=== PATIENT | female | born 1945 | race Caucasian/White ===

== ENCOUNTER 2016-07-10 16:30 | Inpatient (IN) | payer MEDICARE, BC ==
[~2016-07-10] VITALS: Ht 152.4 cm; Wt 54.5 kg
--- NOTE | ~2016-07-10 | OR ---
PATIENT'S NAME: THADDEUS RAE [facility] AGE: 71 Y [address] ROOM: [address] [place] [address] LOCATION: GPCU ADMIT DATE: 07/10/2016 OR/Procedure Report DISCHARGE DATE: FAMILY PHYSICIAN: Nieves Yeh PA-C ATTENDING PHYSICIAN: CHOLO PETERS SURGEON: Otf Flaherty DO SPECIAL INVESTIGATOR: DATE OF PROCEDURE: 07/12/2016 PREOPERATIVE DIAGNOSIS: Loculated right pleural effusion. POSTOPERATIVE DIAGNOSIS: Loculated right pleural effusion plus empyema. PROCEDURE: Right thoracoscopy with drainage of loculated effusion. BRIEF HISTORY: Ms. Rae is a 71-year-old white female with the above- noted diagnosis. She has been brought to the operative suite today, sterilely prepped and draped in the usual fashion in the lateral decubitus position for right thoracoscopy. She has been intubated with a dual-lumen endotracheal tube. An incision was created approximately 3 fingerbreadths below the scapular tip in between the mid and anterior axillary lines. We entered the pleural space under direct vision. Finger sweep yielded evidence of gelatinous type adhesions and these were freed with a finger sweep. Suction was introduced, approximately 350 mL of bloody pleural fluid was evacuated. Thoracoscope was inserted. Dense gelatinous changes with marked inflammatory changes were noted. We were able to place 2 accessory incisions posterolaterally and anterolaterally and through this freed the right lower lobe which was densely involved. Two spots of purulence were encountered. Cultures had been taken. Decortication was performed of the lower lobe and the pleural costophrenic angle on the right. 6 L of normal saline was used to irrigate the pleural space and chest tube was placed to original port site. The remaining 2 incisions were closed in layered fashion using 0 Vicryl, 2-0 Vicryl, and 4-0 Monocryl. Chest tube was secured to the skin with 0 Vicryl and placed to suction. The patient was extubated and transferred to the recovery room in stable condition. OTF FLAHERTY DO MCB/modl /[id number] d: 07/14/16 1821 t: 07/15/16 1141, OPERATIVE SUMMARY
--- NOTE | ~2016-07-10 | CON ---
PATIENT'S NAME: THADDEUS VELAZQUEZ [facility] AGE: 71 Y [address] ROOM: [id number] [place], [place] [address] LOCATION: GPCU ADMIT DATE: 07/10/2016 Consultation DISCHARGE DATE: FAMILY PHYSICIAN: Nieves Yeh PA-C ATTENDING PHYSICIAN: CHOLO PETERS DATE OF CONSULTATION: 07/20/2016 REFERRING PHYSICIAN: Otf Euceda DO REASON FOR CONSULTATION: TIMOTHY. HISTORY OF PRESENT ILLNESS: A 71-year-old female, transferred from an outside hospital with pneumonia and parapneumonic effusion, requiring thoracoscopic evaluation and management, now developed TIMOTHY. Nephrology consultation has been called for the same. Her renal function was at baseline on admission until July 17, 2016, her creatinine raised from 0.5 to 0.7 during this period. However, since July 18, 2016, her creatinine went up and peaked at 1.5 on July 19, 2016. Slowly it has started to dip down, today the creatinine is 1.3. She denied any urinary symptoms including polyuria or nocturia, however, did mention about some dysuric symptoms especially at the time of admission. The UA done on the time of admission was showing some signs of infection including packed WBC and moderate bacteria with positive LE; however, the patient was treated with antibiotic with vanc and meropenem at that time, but currently not on any antimicrobial agent. She denied any shortness of breath or chest pain, at this point feeling better. No fevers or chills or rigors. No nausea, vomiting, or diarrhea. No abdominal symptoms. She claims that she is eating and drinking okay. However, on my evaluation, she appears to be slightly on the dry side. Does not have any JVD, and the mucous membrane was dry and the lungs sounds okay except occasional fine crackles at the right lung base and coarse breath sounds. Her mental status was apparently altered at the time of admission and which was thought to be due to medication induced; however, it has cleared up since then and now currently alert and oriented x3 and can communicate well with the examiner. REVIEW OF SYSTEMS: GENERAL: No fever. No chills or rigor. HEENT: No sore throat. No sinus congestion. CVS: No chest pain. No exertional shortness of breath. No leg swelling. RESPIRATORY: No shortness of breath. No cough. No wheezing. GENITOURINARY: Complains of pain with urination during the time of admission, but does not have any dysuric symptoms at this point. No increased urinary frequency or nocturia. GASTROINTESTINAL: No abdominal pain. No abdominal distention. No nausea or vomiting. NEUROLOGIC: No weakness. No seizures. SKIN: No rash. No itching. ALLERGIES: No seasonal allergy. No hayfever. ENDOCRINE: No heat intolerance. No cold intolerance. PSYCHIATRIC: No sadness. No crying spells. No history of panic attack. PATIENT'S NAME: THADDEUS VELAZQUEZ [facility] AGE: 71 Y [address] ROOM: [place] [address] LOCATION: GPCU ADMIT DATE: 07/10/2016 Consultation DISCHARGE DATE: FAMILY PHYSICIAN: Nieves Yeh PA-C ATTENDING PHYSICIAN: CHOLO PETERS PAST MEDICAL HISTORY: 1. Type 2 diabetes mellitus. 2. Fibromyalgia. 3. Peripheral neuropathy. 4. History of angina and is a patient of Dr. Combs. 5. Atrial tachycardia. PAST SURGICAL HISTORY: No significant surgical history in the past, other than thoracoscopy surgery in the recent time. ALLERGIES: ALLERGY TO LATEX WELL ERYTHROMYCIN. SOCIAL HISTORY: Never a smoker. No alcohol or drug use in the past. PAST FAMILY HISTORY: Significant for COPD/emphysema and coronary artery disease. No history of kidney disease or dialysis in the family. CURRENT MEDICATIONS: 1. Albuterol inhaler b.i.d. 2. Sodium chloride infusion 1 L bolus. 3. Cymbalta 60 mg capsule p.o. daily. 4. Feosol 325 mg p.o. daily. 5. Fish oil 1 g p.o. daily. 6. Florastor 250 mg p.o. b.i.d. 7. Inderal 20 mg tablet p.o. b.i.d. 8. Norvasc 10 mg per tablet p.o. daily. 9. Pepcid 20 mg p.o. daily. 10. Protonix 40 mg tablet p.o. daily. 11. Vitamin D 2000 units p.o. daily. 12. Vitamin E 400 units capsule p.o. daily. 13. Zocor 40 mg p.o. q.h.s. 14. Heparin 5000 units subcut b.i.d. 15. NovoLog 100 units at h.s. 16. Lidocaine 1% p.r.n. for IV start. 17. Albuterol 2.5 mg inhalation p.r.n. 18. Zofran 4 mg IV q.6 hours p.r.n. for vomiting. 19. Flonase 50 mcg 2 sprays inhalation daily p.r.n. 20. Robitussin 200 mg p.o. q.6 hours p.r.n. 21. Sudafed 30 mg p.o. q.4-6 hours p.r.n. LABORATORY STUDIES: WBC 8.8, hemoglobin 9.1, hematocrit 29.5, platelets 557. Chemistry; sodium 145, potassium 4.3, chloride 110, bicarbonate 24, BUN 10, creatinine 1.3, calcium 8.7, glucose 126, albumin 1.7 done on July 17, 2016. UA done on July 11, 2016, shows a pH of 6, specific gravity 1.015, positive LE, negative nitrite, 1+ protein, positive ketones, packed with wbc's, 2-5 rbc's, 5-10 epithelial cells, few bacteria. PATIENT'S NAME: THADDEUS VELAZQUEZ [facility] AGE: 71 Y [address] ROOM: [address] [address] LOCATION: GPCU ADMIT DATE: 07/10/2016 Consultation DISCHARGE DATE: FAMILY PHYSICIAN: Nieves Yeh PA-C ATTENDING PHYSICIAN: CHOLO PETERS PHYSICAL EXAMINATION: VITAL SIGNS: Blood pressure 120s/60s, respiratory rate 16, pulse 68, saturation 98% on room air. GENERAL: Not in apparent distress. HEAD: Moist mucous membranes. Bilateral PERRLA, EOMI. NECK: No JVD, thyromegaly or lymphadenopathy. CVS: S1 and S2 normal, regular rate and rhythm. No murmur, rub, gallop. CHEST: Bilateral air entry equal, especially anteriorly, decreased breath sounds on the right basilar area with some fine crackles occasionally. ABDOMEN: Soft, nontender, nondistended. Bowel sounds present. EXTREMITIES: No cyanosis, clubbing, jaundice. No dependent edema. MUSCULOSKELETAL: No limitation of range of motion. SKIN: No pallor, cyanosis, icterus. ANALYST COMPETITIVE INTELLIGENCE: Alert and oriented x3. No gross findings. ASSESSMENT/PLAN: 1. Acute kidney injury: Nonoliguric acute kidney injury stage 2, presumable etiology is acute tubular necrosis from sepsis versus medication induced. We will send urinalysis and urine lytes including sodium, creatinine, and osmolality. We will gently volume expand the patient with 1 L bolus as ordered by the primary care doctor. We will continue with a maintenance fluid of 100 mL/hour for another 20 hours and a strict intake and output. Avoid nephrotoxins. Maintain hemodynamic stability including MAP more than 65. We agree with maintaining the blood pressure in the 130 to 140 range. Renal ultrasound today. 2. Urinary tract infection. Possibly during the hospital admission, now currently does not have any dysuric symptoms, but not on any antibiotics either. We will repeat the UA today, and we will decide about possible need for further antibiotic therapy. 3. Pneumonia with parapneumonic effusions, status post thoracoscopic evaluation. We will defer that part to the primary team. 4. Acute hypoxic respiratory failure. Resolved, now off oxygen. 5. Acute encephalopathy. During the hospital admission, probably medication induced, resolved now. If the patient has developed ATN, it will follow its natural course of progression, we will see if the creatinine will stabilize for a day or two before finally seeing any improvement, it may take a few days to weeks. However, the patient does not need to be in the hospital during this period if she seems to be dischargeable from other perspective by the primary care team. We will slowly volume expand the patient today as mentioned above, and we will see the renal function tomorrow. If creatinine is a little stable or improving than today, the patient can go home tomorrow with a followup in my clinic in 2 weeks. Thank you for allowing me to participate in this patient's care. We will closely monitor the patient's progress along with you. PAYTON RUSHING MD /modl /[id number] d: 07/20/162021 t: 07/21/16 1354, CONSULTATION REPORT
--- NOTE | ~2016-07-10 | CON ---
PATIENT'S NAME: THADDEUS VELAZQUEZ [facility] AGE: 71 Y [address] ROOM: [place] [address] LOCATION: GPCU ADMIT DATE: 07/10/2016 Consultation DISCHARGE DATE: 07/23/2016 FAMILY PHYSICIAN: Nieves Yeh PA-C ATTENDING PHYSICIAN: Jerry Wesley DATE OF CONSULTATION: 07/11/2016 REFERRING PHYSICIAN: Otf Flaherty DO REQUESTING PHYSICIAN: Dr. Eugene. REASON FOR CONSULTATION: Right loculated pleural effusion. HISTORY OF PRESENT ILLNESS: The patient is a 71-year-old white female, who was transferred here after she presented to her local hospital with complaints of shortness of breath, generalized malaise, that also included diarrhea. This had been going on for approximately one week, and therefore, the family presented to the [facility] where the patient was diagnosed with a right- sided pneumonia with a large loculated pleural effusion. The patient was transferred here and was admitted to [facility] by [facility]. She was placed on broad-spectrum antibiotics. The hospitalists proceeded with a right thoracentesis, yielding 460 mL of pleural fluid, which has been sent for cytology, is currently pending. The patient has been seen by Dr. Eugene, circuit walker. Dr. Flaherty has been asked to see the patient in consultation to proceed to the operative suite for a thoracoscopy and drainage of the loculated effusion. PAST MEDICAL HISTORY: Illnesses: Fibromyalgia, peripheral neuropathy, angina, hypertension, irritable bowel syndrome, asthma, and dyslipidemia. Surgeries/procedures: Total abdominal hysterectomy with bilateral salpingo- oophorectomy, cholecystectomy, bilateral cataract surgeries, sinus surgery x2, cardiac catheterization x2. SOCIAL HISTORY: The patient is . She and her reside in [place], [place]. She is retired. She has grown children. She is a nonsmoker and a non-alcohol consumer. FAMILY HISTORY: Her father's history is significant for having heart disease as well as PATIENT'S NAME: THADDEUS VELAZQUEZ [facility] AGE: 71 Y [address] ROOM: [place] [address] LOCATION: GPCU ADMIT DATE: 07/10/2016 Consultation DISCHARGE DATE: 07/23/2016 FAMILY PHYSICIAN: Nieves Yeh PA-C ATTENDING PHYSICIAN: Jerry Wesley emphysema from smoking. Her mother had history with coronary artery disease and has had bypass surgery, previous strokes and was diabetic. Her sister also had some heart problems. MEDICATIONS: Please see medication administration record. REVIEW OF SYSTEMS: A 10-point review of systems was negative except for the pertinent positives per HPI. PHYSICAL EXAMINATION: VITAL SIGNS: Blood pressure 137/61, pulse 93, respirations 26, temp 98.9, O2 saturations 95% on 1 L. GENERAL: She is a small, frail lady, who appears her stated age. She is very pleasant. HEENT: Normocephalic, atraumatic. EOM is intact. Conjunctivae clear. LUNGS: Clear to diminished throughout. CARDIOVASCULAR: Tachy but regular. ABDOMEN: Soft, nontender by 4 quadrants. Positive bowel sounds throughout. EXTREMITIES: No varicosities or edema. NEUROLOGIC: Alert and oriented. LABORATORY DATA: Lab and test results are as per HPI. IMPRESSION: 1. Sepsis secondary to pneumonia. Right pleural effusion. RECOMMENDATION AND PLAN: Dr. Flaherty spoke to the patient and her family with regard to a right thoracotomy with drainage of effusion. Risks and benefits of the procedure were discussed. Questions were asked and answered by the family, and this was to their satisfaction. They did agree to proceed with surgery. Plans are for surgery on July 12, 2016. We would like to thank Dr. Eugene for allowing us to participate in the care of this very pleasant woman. BIANKA GONSALES APRN FOR OTF FLAHERTY DO PATIENT'S NAME: THADDEUS VELAZQUEZ [facility] AGE: 71 Y [address] ROOM: [place] [address] LOCATION: GPCU ADMIT DATE: 07/10/2016 Consultation DISCHARGE DATE: 07/23/2016 FAMILY PHYSICIAN: Nieves Yeh PA-C ATTENDING PHYSICIAN: Jerry Wesley DLQ/modl /[id number] d: 07/28/163 t: 07/31/16 1032, CONSULTATION REPORT
--- NOTE | ~2016-07-10 | CON ---
PATIENT'S NAME: THADDEUS VELAZQUEZ [facility] AGE: 71 Y [address] ROOM: [place] [address] LOCATION: GPCU ADMIT DATE: 07/10/2016 Consultation DISCHARGE DATE: 07/23/2016 FAMILY PHYSICIAN: Nieves Yeh PA-C ATTENDING PHYSICIAN: Jerry Wesley DATE OF CONSULTATION: 07/21/2016 REFERRING PHYSICIAN: Otf Euceda DO INDICATION: Pleural effusion. HISTORY OF PRESENT ILLNESS: This is a 71-year-old female transferred for pleural effusion with possible loculation noted on CT along with a 1.9 cm hypodensity and atelectasis in the right middle and lower lobes. She has a history of fibromyalgia, diabetes, childhood asthma, and allergies, who was well up until 2 weeks ago. At that time, she developed cough, fever, diarrhea, and shortness of breath. She was evaluated initially and treated with Rocephin and azithromycin. Her flu swab was reportedly negative at that time. She continued to get short of breath with chest tightness and left lateral chest pain with inspiration. She had developed a dry cough as well as wheezing. At that point, her diarrhea had resolved. She also reports excessive daytime sleepiness and snoring. She denies any hemoptysis, edema, or syncope. She has no history of tobacco use. She denies frequent infections, and does not use inhalers or oxygen at home. She was evaluated over 5 years ago with sleep study and was told to come for "another one," but never did. She is status post a right-sided diagnostic thoracentesis with four 460 mL removed and sent for cytology. Overall, she feels a little better this a.m. with less shortness of breath. PAST MEDICAL HISTORY: Includes type 2 diabetes, fibromyalgia, peripheral neuropathy, and possible history of atrial tachycardia. ALLERGIES: SEE MAR. MEDICATIONS: See MAR. FAMILY HISTORY: Family history is significant for emphysema and coronary artery disease in her father. SOCIAL HISTORY: PATIENT'S NAME: THADDEUS VELAZQUEZ [facility] AGE: 71 Y [address] ROOM: [place] [address] LOCATION: GPCU ADMIT DATE: 07/10/2016 Consultation DISCHARGE DATE: 07/23/2016 FAMILY PHYSICIAN: Nieves Yeh PA-C ATTENDING PHYSICIAN: Jerry Wesley She denies tobacco or alcohol use. REVIEW OF SYSTEMS: 12-point review of systems is negative except for what is noted in the HPI. PHYSICAL EXAMINATION: VITAL SIGNS: Blood pressure 116/80, pulse 110, respirations 24, temperature 99.1, and she is 93% on 2 L nasal cannula. GENERAL: This is a 71-year-old female who is well developed, well nourished, alert, oriented x3, appears in no acute distress at the time of exam. HEENT: Head: Normocephalic and atraumatic. Eyes: Clear. NECK: Supple. No adenopathy. No carotid bruits or JVD. LUNGS: Right lung base with dullness on percussion and decreased breath sounds. HEART: Regular rate and rhythm without murmur, gallop, or rub. ABDOMEN: Soft, nontender, nondistended. Bowel sounds x4. EXTREMITIES: No cyanosis, clubbing, or edema. DIAGNOSTIC DATA: Includes sodium 138, potassium 1.3, BUN 7, creatinine 0.5. ProBNP 427. Total protein 6.7. LDH 186. WBC 12.5, hemoglobin 8.1, hematocrit 25.6, and platelets 536. Pleural fluid study showed a glucose of 135, total protein 4.9, and LDH 187. Bedside ultrasound performed showed a right pleural effusion which was multiloculated and with trapped lung. ASSESSMENT: 1. Right complicated pleural effusion with trapped lung. 2. Acute respiratory failure due to right complicated pleural effusion with trapped lung. 3. Sepsis. 4. Community-acquired pneumonia, on antibiotics. PLAN: We will consult Dr. Euceda for evaluation for VATS. Otherwise, continue with antibiotics and wean oxygen as able. We will follow up on the floor cultures as well. Further recommendations will be made pending the course of her stay. Thank you for the consult and opportunity to participate in patient's care. FRANKY PERSAUD APRN FOR MELINA OLIVERA MD MR/modl PATIENT'S NAME: THADDEUS VELAZQUEZ [facility] AGE: 71 Y [address] ROOM: [place] [address] LOCATION: [facility] ADMIT DATE: 07/10/2016 Consultation DISCHARGE DATE: 07/23/2016 FAMILY PHYSICIAN: Nieves Yeh PA-C ATTENDING PHYSICIAN: Jerry Wesley /[id number] d: 07/31/16 2147 t: 08/02/16 1143, CONSULTATION REPORT
--- NOTE | ~2016-07-10 | HP ---
PATIENT'S NAME: THADDEUS VELAZQUEZ [facility] AGE: 71 Y [address] ROOM: [place] [address] LOCATION: GPCU ADMIT DATE: 07/10/2016 History & Physical DISCHARGE DATE: FAMILY PHYSICIAN: PHYSICIAN, UNKNOWN ATTENDING PHYSICIAN: CHOLO PETERS DATE OF SERVICE: CHIEF COMPLAINT: Shortness of breath. HISTORY OF PRESENT ILLNESS: A 71-year-old lady with the past medical history of fibromyalgia and type 2 diabetes, was doing okay until 2 weeks ago when she started having diarrhea, muscle aches, pains, cough and some shortness of breath; which progressed over the period of 1 week. She obtained medical attention at that point and she was given 1 dose of Rocephin intramuscularly and was prescribed azithromycin course. Her condition got worse after this intervention in terms of shortness of breath and generalized weakness. Today, she presented to the [facility] where she was evaluated with some lab work showing leukocytosis of 16 and a CAT scan showing right-sided pneumonia as well as pleural effusion which was moderate to large in size. She was transferred here for further medical care. On my encounter, she is saying that she is somewhat short of breath, having cough with minimal sputum production. She did endorse having fever and chills during the day. She stated that her diarrhea has resolved since then. On further inquiry of systems, she said she does not have any headache, any trouble with the eyes, any trouble swallowing, but did endorse having some chest pressure on and off going on for couple of weeks now. She denied having abdominal pain, any abdominal distention, diarrhea, constipation or any leg swelling. REVIEW OF SYSTEMS: All other systems reviewed and were negative except what is mentioned in the HPI. PAST MEDICAL HISTORY: 1. Type 2 diabetes. 2. Fibromyalgia. 3. Peripheral neuropathy. 4. Of note, she does have history of angina and she is a patient of Dr. Alatorre 5. ? H/O of atrial tachycardia ALLERGIES: THE PATIENT IS ALLERGIC TO LATEX WELL ERYTHROMYCIN. SOCIAL HISTORY: PATIENT'S NAME: THADDEUS VELAZQUEZ [facility] AGE: 71 Y [address] ROOM: [place] [address] LOCATION: GPCU ADMIT DATE: 07/10/2016 History & Physical DISCHARGE DATE: FAMILY PHYSICIAN: PHYSICIAN, UNKNOWN ATTENDING PHYSICIAN: CHOLO PETERS Never a smoker. No alcohol or drug abuse. FAMILY HISTORY: Family history significant for emphysema and coronary artery disease in dad. HOME MEDICATION: Include: 1. Duloxetine 60 mg p.o. every day. 2. Flonase 2 sprays every day. 3. Gabapentin 800 mg p.o. 3 times daily. 4. Lisinopril 5 mg p.o. every day. 5. Metformin 500 mg p.o. every day. 6. Nitroglycerin 0.4 mg sublingual q.5h p.r.n. for pain. 7. Tylenol 1000 mg p.o. every 6 hours p.r.n. for pain. 8. Aspirin 81 mg p.o. every day. 9. Soma tablet 350 mg p.o. every night at bedtime. 10. Cholecalciferol 2000 units p.o. every day. 11. Clonazepam 2 mg p.o. every night at bedtime. 12. Omeprazole 40 mg p.o. every night at bedtime. 13. Propranolol 20 mg p.o. twice daily. 14. Pseudoephedrine 30 mg p.o. every 4 hours p.r.n. 15. Simvastatin 40 mg p.o. every night at bedtime. 16. Vitamin E capsule 400 units p.o. every day. PHYSICAL EXAMINATION: VITAL SIGNS: Blood pressure on arrival to the hospital was 158/78, heart rate of 120, afebrile, saturating 98% on 2 L of oxygen. GENERAL: In no acute distress. Alert, oriented x3. HEENT: Head: Atraumatic, normocephalic. Eyes: Nonicteric. No pallor. Oropharynx: Dry mucous membranes. NECK: No JVD or thyromegaly noted. CARDIOVASCULAR: Normal S1, S2. Tachycardic. No murmur or gallops or rubs. LUNGS: Right-sided decreased breath sound with no expiratory wheezes noted, left-sided clear to auscultation. ABDOMEN: Soft, nontender, nondistended. Bowel sounds are present. EXTREMITIES: No clubbing, cyanosis, or edema. MUSCULOSKELETAL: No tenderness or joint swelling noted. PSYCH: Normal affect, mood and speech. NEURO: Cranial nerves 2 through 12 intact. No motor or sensory deficits noted. SKIN: No bruises or rash noted. LABORATORY DATA: Lab work from outside facility on 07/10/2016 showed a leukocytosis of 16, hemoglobin of 10, platelet count of 800. Sodium 142, potassium 3.5, chloride PATIENT'S NAME: THADDEUS VELAZQUEZ [facility] AGE: 71 Y [address] ROOM: [place] [address] LOCATION: GPCU ADMIT DATE: 07/10/2016 History & Physical DISCHARGE DATE: FAMILY PHYSICIAN: PHYSICIAN, UNKNOWN ATTENDING PHYSICIAN: CHOLO PETERS 99, bicarb 21, BUN 11, creatinine of 0.5, calcium 9.2. Hepatic liver panel was unremarkable. Troponin one set was negative. EKG done over there showed sinus tachycardia without any acute ST-T wave changes. A CAT scan report was reviewed from the outside facility showed right-sided pleural effusion with possible consolidation underneath it. Of note, there was a 1.9 cm round mass which could be a possible loculation, but needs to be evaluated further. At the outside facility, 2 sets of blood cultures were obtained. ASSESSMENT AND PLAN: 1. Community-acquired pneumonia. 2. Right-sided pleural effusion. 3. Type 2 diabetes. 4. Sepsis secondary to pneumonia. 5. Acute cystitis. 6. Anemia, normocytic PLAN: On admission to the hospital, ultrasonography of the chest was done, which did show large right-sided pleural effusion with loculation as well. Diagnostic thoracentesis was performed with aspiration of the yellow turbid fluid. About 460 mL of fluid were aspirated. Post procedure lung sliding ons sonography was noted and no complications were apparent on the chest x-ray. We are going to start intravenous fluid resuscitation as well as broad-spectrum antibiotics. We are going to obtain serial labs including lactic acid level as well as procalcitonin for a possible deescalation. We will monitor pleural fluid cytology as well as analysis to make further decision. We will request a pulmonary consult in the morning to help us with this management( chest tube vs repeat thoracentesis ). We will put her on sliding scale insulin for type 2 diabetes. SCDs to be started in the morning and can be escalated further chemical DVT prophylaxis. Code status was discussed with the patient. The patient is full code. Her anemia is new and needs to be worked up once more stable. From outside hospital and labs repeated in our facility is more consistent with hemodilution. MD CAROLYN IZAGUIRRE/collin /[id number] D: [id number] T: [id number] HISTORY & PHYSICAL
--- NOTE | ~2016-07-10 | CON ---
PATIENT'S NAME: THADDEUS RAE [facility] AGE: 71 Y [address] ROOM: [id number] [place] [id number] LOCATION: GPCU ADMIT DATE: 07/10/2016 Consultation DISCHARGE DATE: FAMILY PHYSICIAN: Nieves Yeh PA-C ATTENDING PHYSICIAN: CHOLO PETERS DATE OF CONSULTATION: 07/19/2016 REFERRING PHYSICIAN: Otf Euceda DO REASON FOR CONSULTATION: Pneumonia with complicated parapneumonic effusion, question duration of antibiotics. HISTORY OF PRESENT ILLNESS: Ms. Rae is a 71-year-old female who has a history of type 2 diabetes. A couple of weeks prior to admission, she started to have cough, shortness of breath, muscle aches, and some loose stools. This apparently progressed. She was given IM Rocephin and given azithromycin, but she worsened. She presented to the hospital in [facility], and a chest x-ray and CT showed right-sided pneumonia and a complicated effusion. White count was 16,000. She was transferred up here, evaluated, and underwent a thoracoscopic evacuation of this pleural effusion. There were a couple of areas where there was a little bit of purulence found. She has been treated with broad-spectrum antibiotics. She received 10 days of therapy of this. She was on vancomycin and Zosyn here. She had her chest tube out on Sunday. She has a little bit of a dry cough now, but otherwise is not short of breath. She does not have any fevers, chills, or sweats. Her muscle aches have improved. Her only complaint really is that she has significant fatigue. She is getting around better and did do some stairs actually with therapy. They are hoping that they can take her home. ID is asked to see for now and see if she needs any further antibiotics. PAST MEDICAL HISTORY: Type 2 diabetes, fibromyalgia, and peripheral neuropathy. ALLERGIES: LISTED TO LATEX AND ERYTHROMYCIN. SOCIAL HISTORY: She is . [place] in [place], [place] Does not smoke, drink, or use illicit drugs. FAMILY HISTORY: Emphysema and coronary artery disease in her father. PATIENT'S NAME: THADDEUS RAE [facility] AGE: 71 Y [address] ROOM: [address] [place] [id number] LOCATION: GPCU ADMIT DATE: 07/10/2016 Consultation DISCHARGE DATE: FAMILY PHYSICIAN: Nieves Yeh PA-C ATTENDING PHYSICIAN: CHOLO PETERS MEDICATIONS: She is not on any antibiotics now. REVIEW OF SYSTEMS: All remaining review of systems otherwise negative with pertinent positives and negatives in the HPI. PHYSICAL EXAMINATION: GENERAL: She is not in any acute distress. Awake, alert, and oriented. Sitting up in a chair. On room air. VITAL SIGNS: Her T-max is 98.3, blood pressure 160/74, pulse 93, and respirations 20. HEENT: NC/AT. EOMI, PERRLA. NECK: Supple. LUNGS: Decreased breath sounds at the right base. Her surgical sites for thoracoscopy look good. HEART: Regular. ABDOMEN: Soft and nontender. EXTREMITIES: Mild edema. SKIN: Without rash. LABORATORY DATA: White count 8.5, hemoglobin 9.3, and platelet count is 557. Pleural fluid white count was 1193, lymphocytes 65%. Creatinine 1.5. Pleural fluid had a glucose of 135, protein of 4.9, pH of 8.1. LDH of 187. ASSESSMENT AND PLAN: 1. Pneumonia. 2. Complicated parapneumonic effusion. 3. Type 2 diabetes. PLAN: Had right thoracoscopy and drainage of complicated effusion on 07/12. There was thought to be a little bit of areas of purulence, but other parameters do not suggest significant empyema. Clinically improved, and no signs of infection. Antibiotics were stopped yesterday after she completed a 10-day course of total antibiotics. This seems reasonable. No real guidelines on how long to treat if she had an infected pleural fluid, i.e., an empyema, but most of these would be based on her clinical improvement as well as possible radiographic improvement; however, this may take weeks to months. In any case, she did not appear to have an empyema based on most of the laboratory parameters, and her cultures all were clear. Agree with following her off antibiotics for now and seeing how she does. Please call with questions. PATIENT'S NAME: THADDEUS RAE [facility] AGE: 71 Y [address] ROOM: [id number] [place] [id number] [facility] AD[facility] DATE: 07/10/2016 Consultation DISCHARGE DATE: FAMILY PHYSICIAN: Nieves Yeh PA-C ATTENDING PHYSICIAN: CHOLO PETERS KARINA C MD TRISTAN ROWAN/collin /[id number] d: 07/19/16 1751 t: 07/25/16 1451, CONSULTATION REPORT
--- NOTE | ~2016-07-10 | DS ---
PATIENT'S NAME: THADDEUS VELAZQUEZ [facility] AGE: 71 Y [address] ROOM: [address] [place], [place] [address] LOCATION: GPCU ADMIT DATE: 07/10/2016 Discharge Summary DISCHARGE DATE: 07/23/2016 FAMILY PHYSICIAN: Nieves Yeh PA-C ATTENDING PHYSICIAN: Jerry Peters PRIMARY CARE PHYSICIAN: Aliya Sr M.D. FINAL DIAGNOSES: 1. Right lower lobe pneumonia. 2. Right parapneumonic effusion, status post video-assisted thoracic surgery. 3. Acute hypoxic respiratory failure, resolved. 4. Severe protein-calorie malnutrition. 5. Urinary retention, resolved. 6. Sepsis secondary to right lower lobe pneumonia and right parapneumonic effusion, status post video-assisted thoracic surgery. 7. Acute encephalopathy, likely medication related, resolved. 8. Diabetes mellitus. 9. Hypertension. CONSULTATIONS: 1. Cardiothoracic Surgery, Dr. Euceda. 2. Pulmonology, Dr. Eugene. 3. Nephrology, Dr. Gonzalez. PROCEDURES: Right thoracoscopy with drainage of loculated right pleural effusion by Dr. Euceda. REASON FOR ADMISSION: This is a 71-year-old female who was transferred from an outlying facility for shortness of breath. The patient was found to have right lower lobe pneumonia and right loculated pleural effusion. She was transferred to [facility] and was admitted for further evaluation and management. Please see Dr. Restrepo's admission H and P for further details. DIAGNOSTIC STUDIES: ABG was done and showed a pH of 7.48, pCO2 of 48, pO2 of 78, bicarb 35.7. Lactate 0.8 on admission, subsequently was 0.6 and 0.9. Accu-Cheks were done on a regular basis and were in the range of 72 to 255. They were managed by sliding scale insulin. Ammonia level 25. Troponin I less than 0.04 x2 on admission. ProBNP 427. Serial CBCs were done. White count on admission was 14.3. The patient was placed on broad-spectrum antibiotics initially and later underwent a VATS procedure. White count at the time of discharge is stable at 7.7. Hemoglobin 8.6 on admission, dropped to 7.1 on 07/13/2016; was given a unit of PRBC transfusion and hemoglobin was PATIENT'S NAME: THADDEUS VELAZQUEZ [facility] AGE: 71 Y [address] ROOM: [address] [place], [place] [address] LOCATION: GPCU ADMIT DATE: 07/10/2016 Discharge Summary DISCHARGE DATE: 07/23/2016 FAMILY PHYSICIAN: Nieves Yeh PA-C ATTENDING PHYSICIAN: Jerry Peters subsequently stable at 9.1 at the time of discharge. Platelet count 622 on admission and 558 at discharge. Serial BMP showed essentially normal electrolytes. The patient had hypokalemia during this admission. This was supplemented on a regular basis. Potassium on the day of discharge was 3.2 and was supplemented prior to discharge. Kidney function tests were normal on admission. The patient's creatinine jumped to 1.5 on 07/18. She was hydrated aggressively, and creatinine on the day of discharge was stable at 1.1, GFR of 49 on discharge. Albumin level 2.0 on admission, 1.7 by discharge. Phosphorus level was within normal range. Liver function tests were normal. LDH 186. Magnesium level was 1.3 and subsequently was 2.3. Hemoglobin A1c 7.3. PT 12.2, INR 1.2 on admission. The patient was placed on vancomycin and that was monitored by random vancomycin level. UA showed rare bacteria. Initially, UA had shown few bacteria. Urine creatinine random 16.2, urine sodium random 119. Iron studies were done; serum iron 15, TIBC 166, percentage saturation 9, urine osmolality 293. The patient had a thoracentesis and pleural fluid showed glucose of 135, pH of 8.1, and LDH of 187. Free T4 of 1.4. Procalcitonin level less than 0.05. TSH 0.349. Vitamin B12 of 514. Folate level 19.1. Ferritin level 101.60. Procalcitonin level was normal throughout the course of this hospitalization, was less than 0.05. Pleural fluid was yellow in color and showed 2+ turbidity with 7000 RBCs and 1193 WBCs and showed 65% lymphs and 17% neutrophils. Chest x-ray was done on admission after thoracentesis and showed opacity at the mid and lower right hemothorax consistent with moderate-sized right pleural fluid collection with adjacent lung consolidation. The patient had a PICC line placed and chest x-ray showed PICC line in place. Chest x-ray was repeated later and showed right pleural fluid and small left pleural fluid and right-sided PICC line in place. Chest x-ray was repeated almost on a daily basis after surgery and showed no pneumothorax. It showed right chest tube and right PICC line in place. Opacity at the bases with greater in extent on the right, consistent with pleural fluid and lung consolidation was noted. Subsequent chest x-rays showed resolution. Chest tube was removed, and chest x-ray did not show any pneumothorax. Two-view chest x-ray was repeated and that showed removal of the chest tube with no pneumothorax, stable overall cardiac and pulmonary appearance was noted with right PICC line in place. The patient had mental status changes on 07/15/2016. CT head showed no acute intracranial pathology; did show generalized atrophic changes, prominence of the ventricle sulci and CSF spaces. The patient developed acute kidney injury on 07/20/2016. Renal ultrasound was found to be normal. Chest x-ray was done prior to discharge and showed no significant change and resolution of previous changes. Pleural fluid showed no bacteria and no growth. Legionella antigen negative. Strep pneumo antigen negative. Urine culture was negative. Gram stain of pleural fluid and wound culture was found to be negative. No acid-fast bacilli were noted on pleural fluid. No growth of AFB noted on pleural fluid. Fungal elements were not observed and no fungal growth was noted in right lung specimen. Occult blood in stool was negative x3. C. diff test was negative. PATIENT'S NAME: THADDEUS VELAZQUEZ [facility] AGE: 71 Y [address] ROOM: [id number] [place] [id number] LOCATION: GPCU ADMIT DATE: 07/10/2016 Discharge Summary DISCHARGE DATE: 07/23/2016 FAMILY PHYSICIAN: Nieves Yeh PA-C ATTENDING PHYSICIAN: Jerry Peters Urine culture negative. HOSPITAL COURSE: The patient was transferred for dyspnea and right loculated pleural effusion and right lower lobe pneumonia. The patient was admitted. She underwent a thoracentesis and findings of the pleural fluid as stated above. Cultures are negative in the pleural fluid. She was initially placed on broad-spectrum antibiotics that included Zosyn and Levaquin and vancomycin. Dr. Euceda of Cardiothoracic Surgery was consulted. He recommended a VATS procedure. The patient underwent a VATS procedure. Pulmonology, Dr. Eugene was consulted as well. The patient underwent a VATS procedure and had a chest tube subsequently. The patient continued to do well. Her chest tube was removed. Chest x-ray showed resolution of previous changes. The patient then continued to do well. She ended up getting antibiotics for a total of 10 days. Infectious Disease was consulted and recommended discontinuation of antibiotics at that point of time. The patient has diabetes mellitus and hypertension. She was managed with sliding scale insulin during this admission and blood glucose levels were as mentioned above. Blood pressure remained stable. Her Inderal was stopped and she was placed on Coreg during this admission. The patient had acute hypoxic respiratory failure. She was able to be weaned off oxygen during this admission. During this admission, the patient developed ATN secondary to antibiotic use. Her creatinine increased and GFR decreased. She was then hydrated. Nephrology was consulted. Kidney ultrasound was found to be normal. She was hydrated aggressively. Creatinine at the time of discharge was stable. The patient will follow up with Nephrology. The patient had poor appetite during this admission and severe protein-calorie malnutrition. She was encouraged p.o. intake and appetite is improving at the time of discharge. She also had urinary retention that resolved with Husain catheter. She was able to void without a Husain catheter prior to discharge. The patient continued to do well. She was ambulating in the hallway. Her acute hypoxic respiratory failure had resolved. She also developed acute encephalopathy during this admission that was likely thought to be secondary to pain medication. CT head was negative. By the time of discharge, the patient's acute encephalopathy had resolved. She continued to do well, and was discharged and asked to follow up with her primary care physician. DISCHARGE INSTRUCTIONS: The patient discharged on 1800-kilocalorie ADA diet. Activities as tolerated. She uses a walker for assistance. She has sutures on her right lateral chest. Primary care physician to remove sutures in 7 days' time. Follow up with Dr. Aliya Sr, PCP, in 1 to 2 days' time. Follow up with Nephrology, Dr. Gonzalez in 2 weeks' time. Follow up with PATIENT'S NAME: THADDEUS VELAZQUEZ [facility] AGE: 71 Y [address] ROOM: [address] [address] LOCATION: GPCU ADMIT DATE: 07/10/2016 Discharge Summary DISCHARGE DATE: 07/23/2016 FAMILY PHYSICIAN: Nieves Yeh PA-C ATTENDING PHYSICIAN: Jerry Peters, Cardiothoracic Surgery, in 2 weeks' time. The patient to have a followup chest x-ray, PA and lateral, in 2 weeks in [place], [place] with PCP. Please push images to [facility]. Follow up with PCP in 1 to 2 days' time. PCP to check a CBC, BMP, and a chest x-ray. Follow up with Dr. Euceda in 2 weeks with a chest x-ray. Follow up with Nephrology in 2 weeks. PCP to remove sutures on right lateral chest in 7 days. Regular Accu-Cheks before meals and at bedtime advised. PCP to check a TSH and a free T4 level. Please fax BMP results to Dr. Gonzalez's office. DISCHARGE MEDICATIONS: 1. Amlodipine 10 mg p.o. daily, new medication. 2. Cholecalciferol 2000 units p.o. daily. 3. Coreg 12.5 mg p.o. b.i.d., new medication. 4. Cymbalta 60 mg p.o. daily. 5. Ferrous sulfate 325 mg p.o. daily, new medication. 6. Aspirin 81 mg p.o. daily. 7. Fish oil 1000 mg p.o. daily. 8. Omeprazole 40 mg p.o. at bedtime. 9. Tylenol 650 mg p.o. q.4 hours p.r.n. pain/fever. 10. Flonase nasal spray 50 mcg per puff nasal spray, 2 sprays in each nostril every day p.r.n. 11. Soma 350 mg p.o. at bedtime p.r.n. pain. 12. Glucophage 500 mg p.o. daily. 13. Nitrostat 0.4 mg sublingual every 5 minutes p.r.n. chest pain, up to 3 doses. 14. Pseudoephedrine 30 mg p.o. q.4 hours p.r.n. sinus pressure. This patient was managed by hospitalist, Cardiothoracic Surgery, Pulmonology, Nephrology, and Infectious Disease teams during this admission. JERRY PETERS MD MT/collin /[id number] CC: DO Aliya King MD d: 07/24/16 0342 t: 08/08/16 0954, DISCHARGE SUMMARY
[2016-07-10] MEDS ORDERED: ZOCOR40 MG PO (19:14)
[2016-07-10] MEDS ORDERED: OMEPRAZOLE40 MG PO (19:14)
[2016-07-10] MEDS ORDERED: PRINIVIL (ZESTRI5 MG PO (19:15)
[2016-07-10] MEDS ORDERED: KLONOPIN2 MG PO (19:15)
[2016-07-10] MEDS ORDERED: CYMBALTA60 MG PO (19:15)
[2016-07-10] MEDS ORDERED: NEURONTIN800 MG PO (19:15)
[2016-07-10] MEDS ORDERED: GLUCOPHAGE500 MG PO (19:16)
[2016-07-10] MEDS ORDERED: FLONASE 50 MCG/16 GM NOSE (19:16)
[2016-07-10] MEDS ORDERED: INDERAL20 MG PO (19:16)
[2016-07-10] MEDS ORDERED: SOMA350 MG PO (19:16)
[2016-07-10] MEDS ORDERED: ASPIRIN LO-DOSE81 MG PO (19:17)
[2016-07-10] MEDS ORDERED: FISH OIL 1,0001 EAC1 PO (19:18)
[2016-07-10] MEDS ORDERED: NITROSTAT0.4 MG SL (19:18)
[2016-07-10] MEDS ORDERED: VITAMIN D-32000 UNI1 PO (19:19)
[2016-07-10] MEDS ORDERED: SUDOGEST30 MG PO (19:19)
[2016-07-10] MEDS ORDERED: VITAMIN E400 UNI2 PO (19:19)
[2016-07-10] MEDS ORDERED: TYLENOL325 MG PO (19:20)
--- NOTE | 2016-07-10 20:50 | NUR ---
71 Y/O FEMALE ADMITTED FOR RT PLEURAL EFFUSION/SINUS TACHYCARDIA. PT APPEARS TO BE TIRED, SLEEPY OR DROWSY, C/O FEELING WEAK. MEDICAL & SURGICAL HISTORY - CYN/BSO, TAWNYA, BIJLAT CATARACT W/ IOLI, SINUS SURGERY X2, HEART CATHS X2. MIGRAINES, SEASONAL ALLERGIES, FIBROMYALGIAM HIGH CHOLESTEROL, ASTHMA, MVP, NOCTURIA, DMII-ORAL MEDS, IBS. PT HAS HAD TROUBLE REMEMBERING THINGS SIGNIFICANTLY MORE OVER THE PAST 3 WEEKS, PT STATES "EVER SINCE I GOT MY PNEUMONIA SHOT". PT STATES "SHE HAS HAD TROUBLE TALKING TODAY", IT IS NOTED THAT PT HAS DIFFICULTY FINDING HER WORDS WELL. PT HAS FELT WEAK AND HAS FALLEN TWICE IN THE PAST 2 WEEKS. DIARRHEA FOR THE PAST 2 WEEKS, COUGH REPORT GIVEN TO PT PRIMARY CARE NURSE SILVIO TAYLOR
[2016-07-10 22:53] LABS: BASOPHIL % 0.1 %; EOSINOPHIL # 0.1 K/uL (0.0-0.5); EOSINOPHIL % 0.7 %; HEMATOCRIT 27.3 % (33.0-46.0); HEMOGLOBIN 8.6 g/dL (10.0-15.0); IMMATURE GRANULOCYTE # 0.1 K/uL (0.0-0.3); IMMATURE GRANULOCYTE % 0.6 %; LYMPHOCYTE # 1.7 K/uL (0.8-4.0); LYMPHOCYTE % 11.7 %; MCH 30.8 pg (27.0-34.0); MCHC 31.5 gm/dL (32.0-36.5); MCV 97.8 fl (83.0-98.0); MONOCYTE # 1.7 K/uL (0.0-1.0); MONOCYTE % 11.5 %; MPV 8.6 fl (9.4-12.4); NEUTROPHIL # (ANC) 10.8 K/uL (1.8-7.8); NEUTROPHIL % 75.4 %; NRBC % 0 /100WBC (0-0.00); PLATELET COUNT 622 K/uL (150-450); RBC 2.79 M/uL (3.50-5.50); RDW-CV 13.4 % (11.9-14.6); WBC 14.3 K/uL (4.0-11.0)
[2016-07-10 23:16] LABS: ALK PHOS 49 IU/L (33-138); ALT 26 IU/L (12-78); ANION GAP 17.6 (10.0-19.0); AST 31 IU/L (10-40); BLOOD UREA NITROGEN 8 mg/dL (6-24); CALCIUM 8.5 mg/dL (8.5-10.5); CHLORIDE 103 mMol/L (96-110); CO2 22 mMol/L (22-32); CREATININE 0.5 mg/dL (0.5-1.1); ESTIMATED GFR (MDRD EQUATION) > 60; POTASSIUM 3.6 mMol/L (3.7-5.1); SODIUM 139 mMol/L (135-145); TOTAL BILIRUBIN 0.3 mg/dL (0.0-1.5); TOTAL PROTEIN 6.7 g/dL (6.0-8.4)
[2016-07-11 03:09] LABS: BILIRUBIN URINE NEGATIVE (NEGATIVE); BLOOD URINE 25 /UL (NEGATIVE); COLOR URINE YELLOW (YELLOW); GLUCOSE URINE NEGATIVE (NEGATIVE); KETONE URINE 150 mg/dL (NEGATIVE); LEUKOCYTES URINE 500 /UL (NEGATIVE); NITRITE URINE NEGATIVE (NEGATIVE); PROTEIN URINE 30 mg/dL (NEGATIVE); SPEC GRAVITY URINE 1.015 (1.003-1.035); TURBIDITY URINE 1+ (CLEAR); UROBILINOGEN URINE NORMAL (NORMAL)
[2016-07-11 03:16] LABS: BACTERIA URINE FEW (NEGATIVE); WBC URINE FULL FIELD #/HPF (NEGATIVE)
[2016-07-11 05:02] LABS: ANION GAP 13.1 (10.0-19.0); BLOOD UREA NITROGEN 7 mg/dL (6-24); CALCIUM 8.2 mg/dL (8.5-10.5); CHLORIDE 103 mMol/L (96-110); CO2 25 mMol/L (22-32); CREATININE 0.5 mg/dL (0.5-1.1); ESTIMATED GFR (MDRD EQUATION) > 60; POTASSIUM 3.1 mMol/L (3.7-5.1); SODIUM 138 mMol/L (135-145)
[2016-07-11 05:08] LABS: BASOPHIL % 0.2 %; EOSINOPHIL % 0.3 %; HEMATOCRIT 25.6 % (33.0-46.0); HEMOGLOBIN 8.1 g/dL (10.0-15.0); IMMATURE GRANULOCYTE # 0.1 K/uL (0.0-0.3); IMMATURE GRANULOCYTE % 0.5 %; LYMPHOCYTE # 0.5 K/uL (0.8-4.0); LYMPHOCYTE % 4.1 %; MCHC 31.6 gm/dL (32.0-36.5); MCV 98.1 fl (83.0-98.0); MONOCYTE # 0.1 K/uL (0.0-1.0); MPV 8.6 fl (9.4-12.4); NEUTROPHIL # (ANC) 11.7 K/uL (1.8-7.8); NEUTROPHIL % 93.9 %; NRBC % 0 /100WBC (0-0.00); PLATELET COUNT 536 K/uL (150-450); RBC 2.61 M/uL (3.50-5.50); RDW-CV 13.5 % (11.9-14.6); WBC 12.5 K/uL (4.0-11.0)
--- NOTE | 2016-07-11 06:56 | NUR ---
Significant Event: Patient arrived at approx 1815. Denies paiun but did complain of shortness of breath upon arriveal. R lung sounds slightly diminished compared to L DT Pneumothorax, thorocentesis done at bedside by Dr Restrepo, 500 fluid removed. Dry cough noted. Patient arrived with PICC line in ANTONIO. Tolerates fluids without issue. Follow up: Continue to monitor per POC
--- NOTE | 2016-07-11 11:44 | NUR ---
Introduced self and role of care management to patient and her . They live in [facility]. She states that she is normally able to do all her own ADL's. She does have a cane and walker at home that she uses if needed. Her does states that he helps out if needed. She plans on returning home on discharge. She denies any needs at this time. Will continue to follow.
[2016-07-11 14:23] LABS: INR - (THERAPEUTIC) 1.2 (0.9-1.1); PROTIME 12.2 SECONDS (9.6-11.1)
--- NOTE | 2016-07-11 15:54 | NUR ---
Significant Event: AOx3, forgetful, searches for words, occasionally makes odd/funny statements. Very pleasant. Has been sleeping on and off alot of the day. Tachypneic, tachycardic this a.m. with rates currently 70s-80s. SBP 120s-160s. O2 per nasal cannula at 1-3 L throughout today. R) lung dim and course to base. Dressing to tap site C/D/I. Was hungry for lunch, then only ate sips/bites. Did drink most of glucerna. 1PA to restroom, slow and unsteady, tolerates well. Cooperative with cares. Follow up: Plan is for Dr Euceda to do thoroscopy tomorrow a.m. NPO at midnight.
--- NOTE | 2016-07-12 03:15 | NUR ---
Significant Event:PT AAOX3.CAN BE SLOW TO ANSWER SOMETIMES BUT WILL ANSWER QUESTIONS.VERY SLEEPY THIS EVENING.DAUGHTER AT [employer]ESIDE.PT ON 2L NC.VSS. UP WITH 1 ASSIST GAIT BELT WALKER. DOES WELL WITH THIS. CONTIENT OF BOWEL AND BLADDER. HAVING LOOSE STOOLS.PICC LINE TO RIGHT UPPER ARM. DRESSING CHANGED AT HS WITH NO COMPLICATIONS.PT HAS BEEN NPO SINCE MIDNIGHT FOR THOROSCOPY THIS AM. PT TAKES MEDICATION WHOLE WITH NO COMPLICATIONS. DENIES PAIN WHEN ASKED. LUNG SOUNDS CLEAR TO DIMINISHED. DENIES SOB.SKIN COLOR IS PALE. Follow up:
[2016-07-12 05:53] LABS: ANION GAP 11.7 (10.0-19.0); BLOOD UREA NITROGEN 7 mg/dL (6-24); CALCIUM 8.1 mg/dL (8.5-10.5); CHLORIDE 106 mMol/L (96-110); CO2 28 mMol/L (22-32); CREATININE 0.6 mg/dL (0.5-1.1); ESTIMATED GFR (MDRD EQUATION) > 60; PHOSPHORUS 2.5 mg/dL (2.5-4.9); POTASSIUM 3.7 mMol/L (3.7-5.1); SODIUM 142 mMol/L (135-145)
[2016-07-12 05:54] LABS: ALBUMIN 1.5 gm/dL (3.5-5.0)
[2016-07-12 06:01] LABS: BASOPHIL % 0.2 %; EOSINOPHIL # 0.3 K/uL (0.0-0.5); HEMATOCRIT 23.5 % (33.0-46.0); HEMOGLOBIN 7.3 g/dL (10.0-15.0); IMMATURE GRANULOCYTE # 0.1 K/uL (0.0-0.3); IMMATURE GRANULOCYTE % 0.5 %; LYMPHOCYTE # 1.4 K/uL (0.8-4.0); LYMPHOCYTE % 12.2 %; MCH 30.8 pg (27.0-34.0); MCHC 31.1 gm/dL (32.0-36.5); MCV 99.2 fl (83.0-98.0); MONOCYTE # 0.7 K/uL (0.0-1.0); MONOCYTE % 6.3 %; MPV 8.9 fl (9.4-12.4); NEUTROPHIL # (ANC) 8.8 K/uL (1.8-7.8); NEUTROPHIL % 77.8 %; NRBC % 0 /100WBC (0-0.00); PLATELET COUNT 421 K/uL (150-450); RBC 2.37 M/uL (3.50-5.50); RDW-CV 13.8 % (11.9-14.6); WBC 11.3 K/uL (4.0-11.0)
[2016-07-12 10:05] LABS: HEMATOCRIT 25.6 % (33.0-46.0)
[2016-07-12 10:07] LABS: HEMOGLOBIN 7.9 g/dL (10.0-15.0)
--- NOTE | 2016-07-12 16:26 | NUR ---
Significant Event: A/OX3, FROGETFUL AT TIMES. VSS ON 2L PER NC. PT. WENT DOWN FOR A THORASCOPY WITH DR. FLAHERTY TODAY, SURGICAL INCISION TO RIGHT UPPER BACK HAS GAUZE/TEGADERM APPLIED, DRESSING IS C/D/I. RIGHT SIDED CHEST TUBE IS TO SUCTION, NO BUBBLING NOTED, DRESSING C/D/I, 88mL SANGIOUS DRAINAGE OUT. PT. GETS UP 1 ASSIST WITH WALKER/BELT TO BATHROOM. NORCO GIVEN AT 1600 FOR PAIN. FAMILY IN ROOM. Follow up: CONTINUE WITH POC.
--- NOTE | 2016-07-13 04:50 | NUR ---
Significant Event: Patient is alert and oriented x 3. Forgetful. Sleepy, but awakens easily. VSS on 1L of O2. HRs in the 80s-low 100s. SBPs in the 100s-1 teens. Highest temp of 99.5. Up with 1-2 assist to bathroom. Bladder scanned at 2300, 498 mls. MD order to straight cath. 500 mls out with straight cath at 2330. No void since then. Chest tube to right side hooked to suction. 80 mls out this shift. Dressing to right side of back is clean, dry, and intact. Double lumen PICC to right upper arm with D5 1/2 NS running at 40 ml/hr. Receiving intermittent IV antibiotics. ACHS accuchecks. at the bedside. Patient is pleasant and cooperative with cares. Follow up:
[2016-07-13 05:47] LABS: BASOPHIL % 0.2 %; EOSINOPHIL # 0.2 K/uL (0.0-0.5); EOSINOPHIL % 1.3 %; HEMATOCRIT 22.9 % (33.0-46.0); HEMOGLOBIN 7.1 g/dL (10.0-15.0); IMMATURE GRANULOCYTE # 0.1 K/uL (0.0-0.3); IMMATURE GRANULOCYTE % 0.5 %; LYMPHOCYTE # 1.3 K/uL (0.8-4.0); LYMPHOCYTE % 9.8 %; MCH 30.6 pg (27.0-34.0); MCV 98.7 fl (83.0-98.0); MONOCYTE # 1.2 K/uL (0.0-1.0); MONOCYTE % 9.5 %; MPV 9.1 fl (9.4-12.4); NEUTROPHIL # (ANC) 10.2 K/uL (1.8-7.8); NEUTROPHIL % 78.7 %; NRBC % 0 /100WBC (0-0.00); PLATELET COUNT 427 K/uL (150-450); RBC 2.32 M/uL (3.50-5.50)
[2016-07-13 06:00] LABS: ALK PHOS 41 IU/L (33-138); ALT 17 IU/L (12-78); ANION GAP 10.3 (10.0-19.0); AST 30 IU/L (10-40); BLOOD UREA NITROGEN 5 mg/dL (6-24); CALCIUM 7.6 mg/dL (8.5-10.5); CHLORIDE 101 mMol/L (96-110); CO2 27 mMol/L (22-32); CREATININE 0.6 mg/dL (0.5-1.1); ESTIMATED GFR (MDRD EQUATION) > 60; POTASSIUM 3.3 mMol/L (3.7-5.1); SODIUM 135 mMol/L (135-145)
[2016-07-13 06:02] LABS: ALBUMIN 1.4 gm/dL (3.5-5.0); TOTAL BILIRUBIN 0.2 mg/dL (0.0-1.5); TOTAL PROTEIN 4.8 g/dL (6.0-8.4)
--- NOTE | 2016-07-13 16:56 | NUR ---
Significant Event: A/OX3, SLOW TO RESPOND, VERY SLEEPY TODAY. VSS ON 1L PER NC WITH SATS IN THE 90'S. PT. WALKED DOWN TO ROOM [id number] TODAY WITH PT THIS AFTERNOON. NORCO GIVEN AT 1030 FOR COMPLAINTS OF PAIN. CHEST TUBE DRESSING IS C/D/I, 100mL OUT. SURGICAL INCISION DRESSING TO BACK IS C/D/I. MARTINO PLACED TODAY, PT. HAD 2050mL UOP. PICC LINE TO RIGHT ARM HAS D5 1/2NS @ 40mL/HR & IV ZOSYN. PT. RECEIVED 1 UNIT OF BLOOD FOR HGB OF 7.1 THIS AM. PT. GETS UP 1 ASSIST, WALKER & GAIT BELT. Follow up: CONTINUE WITH POC.
--- NOTE | 2016-07-14 04:39 | NUR ---
DISORIENTED TO TIME. DROWSY FOR MOST OF SHIFT MORE ALERT ON LAST ASSESSMENT. HR 80-100. SBP 100-130s. 1L O2 NC. AFEBRILE. 1A UP TO CHAIR. MARTINO INTACT 1150ML UOP. R) CT TO SUCTION 10ML OUT. R) UPPER ARM PICC. D5 1/2NS AT 40ML/HR. DENIES PAIN. NO BM. TURN 2Q.
[2016-07-14 05:54] LABS: ANION GAP 10.8 (10.0-19.0); BLOOD UREA NITROGEN 4 mg/dL (6-24); CHLORIDE 101 mMol/L (96-110); CO2 30 mMol/L (22-32); CREATININE 0.6 mg/dL (0.5-1.1); ESTIMATED GFR (MDRD EQUATION) > 60; MAGNESIUM 1.7 mg/dL (1.3-2.6); PHOSPHORUS 2.6 mg/dL (2.5-4.9); POTASSIUM 3.8 mMol/L (3.7-5.1); SODIUM 138 mMol/L (135-145)
[2016-07-14 05:57] LABS: ALBUMIN 1.3 gm/dL (3.5-5.0)
[2016-07-14 05:59] LABS: BASOPHIL % 0.3 %; EOSINOPHIL # 0.4 K/uL (0.0-0.5); EOSINOPHIL % 3.6 %; HEMATOCRIT 25.9 % (33.0-46.0); HEMOGLOBIN 8.2 g/dL (10.0-15.0); IMMATURE GRANULOCYTE # 0.1 K/uL (0.0-0.3); IMMATURE GRANULOCYTE % 0.5 %; LYMPHOCYTE # 1.6 K/uL (0.8-4.0); LYMPHOCYTE % 13.4 %; MCH 29.5 pg (27.0-34.0); MCHC 31.7 gm/dL (32.0-36.5); MONOCYTE % 8.3 %; MPV 9.2 fl (9.4-12.4); NEUTROPHIL # (ANC) 8.7 K/uL (1.8-7.8); NEUTROPHIL % 73.9 %; NRBC % 0 /100WBC (0-0.00); PLATELET COUNT 377 K/uL (150-450); RBC 2.78 M/uL (3.50-5.50); WBC 11.8 K/uL (4.0-11.0)
[2016-07-14 06:01] LABS: MCV 93.2 fl (83.0-98.0); RDW-CV 16.3 % (11.9-14.6)
--- NOTE | 2016-07-14 11:47 | NUR ---
A-SCREENED D/T LOS 07/10-THROCENTESIS AND 07/12-THOROSCOPY W/R)CHEST TUBE PLACED HT: 60 IN. WT: 53.6 KG. 119% IBW. BMI: 23.0 LABS: NA 138, K+ 3.8, GLU 154, BUN 4, GAS APPLIANCE ADJUSTER 0.6, ALB 1.3 MEDS: VANCOMYCIN, NOVOLOG (MOD SS), FEOSOL, REGLAN, ZOFRAN, NORCO, MORPHINE, PEPCID, ZESTRIL, CYMBALTA, VITAMIN D, VITAMIN E, ZOSYN, KLONOPIN, PROTONIX DIET RX: CONSISTENT CARB W/CHOCOLATE ENSURE AT BRK. PO INTAKE POOR; REFUSAL-25% EST NUTR NEEDS: 3557-4612 KCALS (25-30 KCALS/KG) 43-65 GM PROTEIN (0.8-1.1 GM/KG) 1 ML FLUID/KCAL D-AT NUTRITION RISK W/INADEQUATE NUTRIENT INTAKE R/T DECREASED APPETITE, MULTIPLE PROCEDURES AEB INTAKE RECORDS, I-1)D/C CHOCOLATE ENSURE AT BRK 2)ADD GLUCERNA TID W/MEALS M/E-GOAL: PO INTAKE >/=50% BY NEXT F/U 1)F/U PO INTAKE, SUPPLEMENT, AND POC IN 3-5 DAYS 2)ASSIST NEEDED
--- NOTE | 2016-07-14 16:02 | NUR ---
Significant Event: Patient less drowsy today. Oriented at times but frequently confused to time and at times has difficulty expressing herself. Incontinent of stool, cdiff negative. Need 2 more hematests. 50 ml out chest tube and CT to H20 seal. CXR in AM. Follow up:
[2016-07-14 21:19] LABS: BICARBONATE 35.7 mmol/L (18.0-23.0); PCO2 48 mmHg (35-45); PO2 78 mmHg (80-90)
[2016-07-15 03:55] LABS: ANION GAP 11.7 (10.0-19.0); BLOOD UREA NITROGEN 5 mg/dL (6-24); CALCIUM 8.1 mg/dL (8.5-10.5); CHLORIDE 101 mMol/L (96-110); CO2 31 mMol/L (22-32); CREATININE 0.6 mg/dL (0.5-1.1); ESTIMATED GFR (MDRD EQUATION) > 60; POTASSIUM 3.7 mMol/L (3.7-5.1); SODIUM 140 mMol/L (135-145)
--- NOTE | 2016-07-15 04:23 | NUR ---
AT APROX 2100 THIS EVENIING PATIENT HAD UNREPONSIVE EPISODE FOR APROX 45MIN. VITALS STABLE AT THIS TIME. DR FLAHERTY AND DR DOLAN NOTIFED AT THIS TIME. ABG, CXR, ACCUCHECK NEG FOR POSSIBLE DRECRESED LOC. IN ROOM PAIENT BECAME ALERT AND RESPONSIVE AGIAN WITHOUT INTERVENTION. PATIENT STATED SHE "COULD HEAR AND FEEL THINGS THAT WERE GOING ON". MARTINO INACT [address] WITH 20ML OUT. PICC R) UPPER ARM. UP TO COMMODE 1ASSIST. DENIES PAIN.
[2016-07-15 04:40] LABS: BASOPHIL % 0.3 %; EOSINOPHIL # 0.5 K/uL (0.0-0.5); EOSINOPHIL % 4.5 %; HEMATOCRIT 26.2 % (33.0-46.0); HEMOGLOBIN 8.3 g/dL (10.0-15.0); IMMATURE GRANULOCYTE # 0.1 K/uL (0.0-0.3); IMMATURE GRANULOCYTE % 0.6 %; LYMPHOCYTE # 1.7 K/uL (0.8-4.0); LYMPHOCYTE % 15.9 %; MCH 29.5 pg (27.0-34.0); MCHC 31.7 gm/dL (32.0-36.5); MCV 93.2 fl (83.0-98.0); MONOCYTE # 0.7 K/uL (0.0-1.0); MONOCYTE % 6.1 %; MPV 9.4 fl (9.4-12.4); NEUTROPHIL # (ANC) 7.9 K/uL (1.8-7.8); NEUTROPHIL % 72.6 %; NRBC % 0 /100WBC (0-0.00); PLATELET COUNT 393 K/uL (150-450); RBC 2.81 M/uL (3.50-5.50); RDW-CV 15.4 % (11.9-14.6); WBC 10.9 K/uL (4.0-11.0)
--- NOTE | 2016-07-15 16:23 | NUR ---
Significant Event: Patient combative at beginning of shift. Patient calms down and cooperates with cares when at bedside. Lethargic today, confused most of the time will occasionally answer some orientation questions appropriately. CT head neg. Neurontin dc'd. Agar last received . [facility] output[address] CT will be dc'd tomorrow if patient is cooperative and following commands. VSS on RA. Very weak today, stand to pivot 2 assist - required continuous cueing today when transferring. Husain to DD with good UOP. Follow up: encourage nutrition, cont plan of care.
[2016-07-16 04:00] LABS: ANION GAP 14.8 (10.0-19.0); BLOOD UREA NITROGEN 6 mg/dL (6-24); CALCIUM 8.8 mg/dL (8.5-10.5); CHLORIDE 97 mMol/L (96-110); CO2 29 mMol/L (22-32); CREATININE 0.7 mg/dL (0.5-1.1); ESTIMATED GFR (MDRD EQUATION) > 60; PHOSPHORUS 3.5 mg/dL (2.5-4.9); POTASSIUM 3.8 mMol/L (3.7-5.1); SODIUM 137 mMol/L (135-145)
[2016-07-16 04:03] LABS: ALBUMIN 1.7 gm/dL (3.5-5.0)
[2016-07-16 04:07] LABS: BASOPHIL # 0.1 K/uL (0.0-0.2); BASOPHIL % 0.4 %; EOSINOPHIL # 0.4 K/uL (0.0-0.5); HEMATOCRIT 31.4 % (33.0-46.0); IMMATURE GRANULOCYTE # 0.1 K/uL (0.0-0.3); IMMATURE GRANULOCYTE % 0.8 %; LYMPHOCYTE % 7.6 %; MCH 29.5 pg (27.0-34.0); MCHC 31.8 gm/dL (32.0-36.5); MCV 92.6 fl (83.0-98.0); MONOCYTE # 0.7 K/uL (0.0-1.0); MONOCYTE % 5.3 %; MPV 9.2 fl (9.4-12.4); NEUTROPHIL # (ANC) 10.8 K/uL (1.8-7.8); NEUTROPHIL % 82.9 %; NRBC % 0 /100WBC (0-0.00); RBC 3.39 M/uL (3.50-5.50)
[2016-07-16 04:11] LABS: PLATELET COUNT 507 K/uL (150-450)
--- NOTE | 2016-07-16 04:40 | NUR ---
Significant Event: Patient alert, but only oriented to self and month (not year or place). Patient has been very drowsy most of shift. Did stand to pivot from chair to bed and from bed to commode, but was a heavy 2 assist and required lots of coaxing. Chest tube to water seal, not enough output to measure. Gave pills crushed in chocolate pudding last night and they seemed to go down better. BM this AM. Follow Up: Possibly d/c chest tube today.
--- NOTE | 2016-07-16 16:02 | NUR ---
Significant Event: Alert, less lethargic today. Ignored and refused to answer orientation questions, upset that we keep asking. Continues to make strange comments from time to time. Activity improved today, less cueing required but needs more help with using walker. CT to H20 seal and order to clamp at midnoc, CXR in AM. Refusing to eat except she did eat roughly 25% of her oatmeal at breakfast. Meds crushed in applesauce. Low grade temps today, encourage IS/FV but patient was too confused to follow directions on how to use at times but did understand enough to use a couple of times. Husain to KENDALL. Follow up:
[2016-07-17 04:07] LABS: ANION GAP 14.4 (10.0-19.0); BLOOD UREA NITROGEN 8 mg/dL (6-24); CALCIUM 8.6 mg/dL (8.5-10.5); CHLORIDE 99 mMol/L (96-110); CO2 29 mMol/L (22-32); CREATININE 0.7 mg/dL (0.5-1.1); ESTIMATED GFR (MDRD EQUATION) > 60; PHOSPHORUS 3.7 mg/dL (2.5-4.9); POTASSIUM 3.4 mMol/L (3.7-5.1); SODIUM 139 mMol/L (135-145)
[2016-07-17 04:09] LABS: ALBUMIN 1.7 gm/dL (3.5-5.0)
--- NOTE | 2016-07-17 04:25 | NUR ---
Significant Event: Patient alert, but disoriented to time and place. Patient is usually uncooperative with cares. Must be talked into assessments and refuses to participate in neuro assessment. Patient did not take evening pills and became combative when nurse was trying to give them. Very confused. Thought her daughter was her sister. Patient did tell charge nurse that the nurse was "a murderer" among other confused statements. At times patient is very cooperative and pleasant, but this can change in a matter of seconds. Follow Up: Maintain safe environment for patient and family. Continue plan of care.
[2016-07-17 04:31] LABS: BASOPHIL % 0.3 %; EOSINOPHIL # 0.2 K/uL (0.0-0.5); EOSINOPHIL % 2.3 %; HEMATOCRIT 29.4 % (33.0-46.0); HEMOGLOBIN 9.3 g/dL (10.0-15.0); IMMATURE GRANULOCYTE # 0.1 K/uL (0.0-0.3); IMMATURE GRANULOCYTE % 0.8 %; LYMPHOCYTE # 1.2 K/uL (0.8-4.0); LYMPHOCYTE % 13.4 %; MCH 29.6 pg (27.0-34.0); MCHC 31.6 gm/dL (32.0-36.5); MCV 93.6 fl (83.0-98.0); MONOCYTE # 0.5 K/uL (0.0-1.0); MONOCYTE % 5.4 %; MPV 9.3 fl (9.4-12.4); NEUTROPHIL # (ANC) 7.2 K/uL (1.8-7.8); NEUTROPHIL % 77.8 %; NRBC % 0 /100WBC (0-0.00); PLATELET COUNT 490 K/uL (150-450); RBC 3.14 M/uL (3.50-5.50); RDW-CV 14.6 % (11.9-14.6); WBC 9.3 K/uL (4.0-11.0)
--- NOTE | 2016-07-17 12:35 | NUR ---
Social visit with patient, and chantel. She is feeling better today. We discussed discharge plans. At this time her would still like to take her home. He does states however he feels a short stay at the [facility] may be needed as she is not eating much and not getting around the best. I explained that I would make a referral to the [facility] in case she is not able to go home. I called and spoke to the D.O.N and faxed referral information. Will continue to follow.
--- NOTE | 2016-07-17 14:12 | NUR ---
A-NUTRITION F/U R)CHEST TUBE STILL IN. CONFUSED AT TIMES. LABS: NA 139, K+ 3.4, GLU 126, BUN 8, HUMAN RESOURCES DISTRICT MANAGER 0.7, ALB 1.7 MEDS: 07/15-VANCOMYCIN DIET RX: CONSISTENT CARB/MECHANICAL SOFT. GLUCERNA TID W/MEALS. PO INTAKE REFUSAL-75%. TAKES PILLS WELL IN PUDDING. EST NUTR NEEDS: 9200-6707 KCALS AND 43-65 GM PROTEIN D-AT NUTRITION RISK W/INADEQUATE NUTRIENT INTAKE R/T POOR APPETITE AEB INTAKE RECORDS. I-1)CONTINUE W/GLUCERNA TID W/MEALS 2)ADD CHOCOLATE ENSURE PUDDING BID AT L/D M/E-GOAL: PO INTAKE >/=50% BY NEXT F/U 1)F/U PO INTAKE,SUPPLEMENT, LABS, AND POC IN 3-5 DAYS 2)ASSIST NEEDED
--- NOTE | 2016-07-17 18:35 | NUR ---
Significant Event: ALERT, D/O TO PLACE BUT RE-ORIENTS. RIGHT CT DC'D, DRESSING IN PLACE. RIGHT UPPER FA DUAL LUMEN PICC LINE SL'D. VSS. ROOM AIR. AMBULATED IN HALLS X2 WITH PT. BM X3. MARTINO CATH PATENT WITH 1000 ML UOP. Follow up:CHEST X-RAY IN AM.
--- NOTE | 2016-07-18 04:23 | NUR ---
FORGETFUL. FAMILY AT BEDSIDE. MAKES CONFUSED STATEMENTS AT TIMES. HR 70-90s. SBP 140-160s. ROOM AIR. AFEBRILE. TYLENOLx1 FOR R) INCISIONAL/ THORACOTOMY PAIN. MARTINO INTACT 1050ML UOP. SCANT BM. 1 ASSIST TO COMMODE/CHAIR. PILLS CRUSHED IN PUDDING. [facility] SOFT DIET. THIN LIQUIDS.
--- NOTE | 2016-07-18 05:02 | NUR ---
PT REFUSED HER TREATMENT AND IS TODAY.
[2016-07-18 05:50] LABS: ANION GAP 13.6 (10.0-19.0); CALCIUM 8.7 mg/dL (8.5-10.5); MAGNESIUM 2.3 mg/dL (1.3-2.6); POTASSIUM 3.6 mMol/L (3.7-5.1)
[2016-07-18 05:52] LABS: CREATININE 1.4 mg/dL (0.5-1.1)
[2016-07-18 05:59] LABS: HEMATOCRIT 29.5 % (33.0-46.0); HEMOGLOBIN 9.1 g/dL (10.0-15.0); MCHC 30.8 gm/dL (32.0-36.5); MCV 93.9 fl (83.0-98.0); MPV 9.3 fl (9.4-12.4); PLATELET COUNT 519 K/uL (150-450); RBC 3.14 M/uL (3.50-5.50); RDW-CV 14.6 % (11.9-14.6); WBC 8.8 K/uL (4.0-11.0)
[2016-07-18 06:35] LABS: ABSOLUTE NEUTROPHIL CT (ANC) 6.9 K/uL (1.8-7.8); LYMPHOCYTE # 1.4 K/uL (0.8-4.0); LYMPHOCYTE % 16 %; MONOCYTE # 0.3 K/uL (0.0-1.0); SEGMENTED NEUTROPHIL # 6.9 K/uL (1.8-7.8); SEGMENTED NEUTROPHIL % 78 %
[2016-07-18 09:36] LABS: CREATININE 1.5 mg/dL (0.5-1.1)
--- NOTE | 2016-07-18 13:02 | NUR ---
Receved a call from Christa SWB coordinator at [place]. She states that they can accept patient for admission if they need SWB.
--- NOTE | 2016-07-18 17:08 | NUR ---
Significant Event: Patient makes confused statements although she answers orientation questions appropriately (didn't know year). Worse at the end of the day. Up with 1A and walker. VSS on RA. SBP 150-160's. HR's 70-80's. R)UA PICC dressing changed today. Gave 500 cc bolus of NS and started gtt at 70 ml/hr. D/C'd IV antibiotics. D/C'd cristina catheter at 1630. ACHS accu checks. Last blood sugar 72. Poor PO intake. Family at bedside throughout the day. Follow up: Continue as per plan of care. Monitor confusion. Awaiting void post cristina removal.
[2016-07-19 05:46] LABS: ANION GAP 13.5 (10.0-19.0); CALCIUM 8.7 mg/dL (8.5-10.5); CREATININE 1.5 mg/dL (0.5-1.1); POTASSIUM 3.5 mMol/L (3.7-5.1)
--- NOTE | 2016-07-19 06:00 | NUR ---
Significant Event: PATIENT ORIENTED TO SELF ONLY. HAS BEEN PLEASANT THIS EVENING. AMBULATES 1 ASSIST WITH WALKER. ALL VSS ON RA. POSSIBLE DISCHARGE TO SWING BED OR HOME SOON PENDING DECISIN OF . Follow up:
[2016-07-19 06:10] LABS: BASOPHIL % 0.5 %; EOSINOPHIL # 0.1 K/uL (0.0-0.5); EOSINOPHIL % 1.3 %; HEMATOCRIT 29.7 % (33.0-46.0); HEMOGLOBIN 9.3 g/dL (10.0-15.0); IMMATURE GRANULOCYTE # 0.1 K/uL (0.0-0.3); IMMATURE GRANULOCYTE % 0.7 %; LYMPHOCYTE # 1.2 K/uL (0.8-4.0); LYMPHOCYTE % 14.5 %; MCH 29.5 pg (27.0-34.0); MCHC 31.3 gm/dL (32.0-36.5); MCV 94.3 fl (83.0-98.0); MONOCYTE # 0.2 K/uL (0.0-1.0); MONOCYTE % 2.1 %; MPV 9.4 fl (9.4-12.4); NEUTROPHIL # (ANC) 6.9 K/uL (1.8-7.8); NEUTROPHIL % 80.9 %; NRBC % 0 /100WBC (0-0.00); PLATELET COUNT 557 K/uL (150-450); RBC 3.15 M/uL (3.50-5.50); RDW-CV 14.6 % (11.9-14.6); WBC 8.5 K/uL (4.0-11.0)
--- NOTE | 2016-07-19 13:31 | NUR ---
Social visit with patient and . We discussed discharge options. I explained that I had heard from the Swing bed and they will accept patient if they need. still is hoping to be able to take her home. They deny any needs at this time. Will continue to follow.
--- NOTE | 2016-07-19 15:53 | NUR ---
Significant Event: Alert and oriented X 2. Difficulty with time, and name of hospital. SBP 160's, 170's and 190's. HR 80's & 90's. PICC to upper right arm, double lumen. NS infusing in purple, white flushes well with good blood return. 1A walker and gait belt. Lungs clear and diminished. Incision on back from thorancentesis suture under arm, no signs of infection. ACHS Accu checks, no correction needed. Diabetic diet. Family brought in family dog this shift. Takes pills whole with water. Pleasant and cooperative with cares. Follow up: Meeting with Zayra at 1300 tomorrow.
[2016-07-19 17:10] LABS: ANION GAP 16.3 (10.0-19.0); CALCIUM 8.5 mg/dL (8.5-10.5); CREATININE 1.4 mg/dL (0.5-1.1); POTASSIUM 3.3 mMol/L (3.7-5.1)
[2016-07-20 04:01] LABS: ANION GAP 15.3 (10.0-19.0); CALCIUM 8.7 mg/dL (8.5-10.5); CREATININE 1.3 mg/dL (0.5-1.1)
[2016-07-20 04:05] LABS: POTASSIUM 4.3 mMol/L (3.7-5.1)
--- NOTE | 2016-07-20 05:04 | NUR ---
FORGETFUL. VSS. ROOM AIR. AFEBRILE. PICC TO R) UPPER ARM INFUSING NS AT 70ML/HR. MEETING TODAY AT 1300 WITH FAMILY TO DISCUSS PLAN. 1A WALKER TO BATHROOM. FREQUENCY IN URINATION. NO BM. DENIES PAIN. FAMILY AT BEDSIDE.
--- NOTE | 2016-07-20 10:44 | NUR ---
A - NUTRITION F/U. GLU 126, BUN/OEM SALES MANAGER 02/04.3. PT W/ 1+ EDEMA T/O. GLU 126, BUN/OEM SALES MANAGER 02/04.3. DIET: DIABETIC MECH SOFT W/ GLUCERNA TID AND ENSURE PUDDING BID AT L/D. INTAKE BITES TO 25%. EST NEEDS: 6282-3611 KCALS, 43-65 GM PROTEIN, 1 ML/KCAL FLUIDS. WORKING ON DISCHARGE PLANNING. D - INADEQUATE ORAL INTAKE R/T DECREASED APPETITE AEB INTAKE RECORD. I - GOAL: 50% INTAKE BY NEXT REVIEW. M/E - ENCOURAGE MEAL AND SUPPLEMENT INTAKE. F/U IN 3-5 DAYS IF STILL HERE.
[2016-07-20 12:58] LABS: BILIRUBIN URINE NEGATIVE (NEGATIVE); BLOOD URINE 10 /UL (NEGATIVE); COLOR URINE YELLOW (YELLOW); GLUCOSE URINE NEGATIVE (NEGATIVE); KETONE URINE 5 mg/dL (NEGATIVE); LEUKOCYTES URINE NEGATIVE /UL (NEGATIVE); NITRITE URINE NEGATIVE (NEGATIVE); PROTEIN URINE NEGATIVE (NEGATIVE); SPEC GRAVITY URINE 1.005 (1.003-1.035); TURBIDITY URINE CLEAR (CLEAR); UROBILINOGEN URINE NORMAL (NORMAL)
[2016-07-20 13:17] LABS: RBC URINE 0-2 #/HPF (NEGATIVE); WBC URINE NEGATIVE #/HPF (NEGATIVE)
[2016-07-20 13:18] LABS: BACTERIA URINE RARE (NEGATIVE); MUCUS URINE 1+ (NEGATIVE)
[2016-07-20 17:22] LABS: ANION GAP 15.8 (10.0-19.0); CALCIUM 8.8 mg/dL (8.5-10.5); CREATININE 1.3 mg/dL (0.5-1.1); POTASSIUM 3.8 mMol/L (3.7-5.1)
--- NOTE | 2016-07-20 17:32 | NUR ---
Significant Event: MORE NS BOLUSES TODAY WILL NEED 2 MORE LTS TONIGHT. URINE STUDIES DONE. RENAL US DONE TODAY. VSS, WALKS STEADY WITH WALKER AND SB ASSIST. DAUGHTER AND HUGE HELPERS. NO INSULIN COVERAGE NEEDED Follow up: MONITOR
[2016-07-21 04:19] LABS: ANION GAP 15.5 (10.0-19.0); CALCIUM 8.8 mg/dL (8.5-10.5); CREATININE 1.2 mg/dL (0.5-1.1); POTASSIUM 3.5 mMol/L (3.7-5.1)
--- NOTE | 2016-07-21 04:19 | NUR ---
FORGETFUL. VSS. ROOM AIR. AFEBRILE. TYLENOLx1 FOR BACK PAIN. FREQUENCY IN URINATION. NS INFUSING AT 100ML/HR TO R) UPPER ARM PICC. NO BM.
[2016-07-21 04:24] LABS: BASOPHIL # 0.1 K/uL (0.0-0.2); BASOPHIL % 0.6 %; EOSINOPHIL # 0.1 K/uL (0.0-0.5); HEMATOCRIT 29.6 % (33.0-46.0); HEMOGLOBIN 9.1 g/dL (10.0-15.0); IMMATURE GRANULOCYTE # 0.1 K/uL (0.0-0.3); IMMATURE GRANULOCYTE % 0.9 %; LYMPHOCYTE # 1.6 K/uL (0.8-4.0); LYMPHOCYTE % 20.8 %; MCH 29.4 pg (27.0-34.0); MCHC 30.7 gm/dL (32.0-36.5); MCV 95.8 fl (83.0-98.0); MONOCYTE # 0.2 K/uL (0.0-1.0); MPV 9.6 fl (9.4-12.4); NEUTROPHIL # (ANC) 5.7 K/uL (1.8-7.8); NEUTROPHIL % 73.7 %; NRBC % 0 /100WBC (0-0.00); PLATELET COUNT 558 K/uL (150-450); RBC 3.09 M/uL (3.50-5.50); RDW-CV 14.7 % (11.9-14.6); WBC 7.7 K/uL (4.0-11.0)
--- NOTE | 2016-07-21 14:00 | NUR ---
SPOKE W/PT AND PT'S DAUGHTER RE: QUESTIONS RE: SUPPLEMENT. PT IS DOES NOT LIKE THE GLUCERNA; SHE STATES "IT IS TOO SWEET." WILL D/C GLUCERNA PER PT REQUEST. PT WAS MADE A NON-SELECT; PT WOULD LIKE ORDER HER OWN MEALS. MENU STATUS CHANGED TO SELECT. PT'S FAMILY IS BRINGING PT IN FOOD. ENCOURAGED THEM TO LET NURSING KNOW, SO HER INTAKE RECORDS WILL BE ACCURATE. WILL ASSIST NEEDED.
--- NOTE | 2016-07-21 14:04 | NUR ---
A-NUTRITIN CONSULT RECEIVED D/T PREALB OF 16.0 ADMITTED WITH STERNAL WOUND INCECTION. 07/20-STERNAL WOUND DEBRIDEMENT W/CLOSURE. PT SLEEPING WHEN ATTEMPTED TO SEE. HT: 65 IN. WT: 81.7 KG. BMI: 30.1 LABS: NA 140, K+ 4.0, LGU 111, BUN 13, SUPERVISOR KNITTING 0.9, ALB 2.9, PREALB 16.0 LOW PREALB TO BE EXPECTED W/INFLAMMATION PROCESS FROM STERNAL WOUND INFECTION. MEDS: LASIX, BUMEX, NORCO, K-TAB, VANCO, CELEXA, LIPITOR, LAMICTAL, NICODERM, FEOSOL DIET RX: CARDIAC. PO INTAKE REF-100% EST NUTR. NEEDS: 8390-0248 KCALS (25-30 KCALS/KG) 85-114 GM PROTEIN (1.5-2.0 GM/KG IBW) 1 ML FLUID PER KCAL D-AT NUTRITION RISK W/INCREASED NUTRIENT NEEDS R/T HEALING AEB STERNAL WOUND/ INFECTION. I-START ENSURE ENLIVE TID TO PROVIDE ADDITIONAL NUTRIENTS M/E-GOAL: PO INTAKE >/=50% BY NEXT F/U 1)WILL F/U PO INTAKE, SUPPLEMENT, WOUND, AND POC IN 3-5 DAYS 2)WILL ASSIST NEEDED
--- NOTE | 2016-07-21 14:37 | NUR ---
Significant Event: Alert and disoriented to place at times. Forgetful. SBP- 140-160. P-70-80. Afebrile. Room air with saturations in the upper 90s. R) UA PICC infusing 1/2 bicarb with potassium at 50ml/hr x 20 hours. Denies SOB. Thorocotomy incision open to air, edges approximated. Chest tube site, sutured, open to air. Up with SBA. Working with PT/OT and cardiac rehab. Ambulated x5 this shift. Possible discharge home tomorrow.
--- NOTE | 2016-07-21 16:33 | NUR ---
Introduced self and role of care management to pt and her daughter. I did discuss going home vs swinged and she states her has it all covered and plan is home and they have walker and getting shower bench. He is aware if needed can do the swingbed but plan is home and denies the need for hhc. IMM reviewed. Will assist as needed.
[2016-07-22 04:51] LABS: ANION GAP 13.9 (10.0-19.0); CREATININE 1.2 mg/dL (0.5-1.1); POTASSIUM 3.9 mMol/L (3.7-5.1)
--- NOTE | 2016-07-22 06:27 | NUR ---
A/O x3. Afebrile. Denies pain. SBP 120-150s. HR 70-90s. RA. Ls clear/dim. rested well throughout night. Cooperative with cares.
[2016-07-22 16:11] LABS: ANION GAP 13.6 (10.0-19.0); CALCIUM 8.7 mg/dL (8.5-10.5); CREATININE 1.2 mg/dL (0.5-1.1); POTASSIUM 3.6 mMol/L (3.7-5.1)
--- NOTE | 2016-07-22 18:24 | NUR ---
Significant Event: Alert, disoriented to place at times. Forgetful. VSS, remains ORA. Cr. 1.2, BUN 11, GFR 44 - bolused with 2L of NS and now running at NS 100ml/hr. Incision approximated. CT intact with suture. Up walking in the halls with therapy. Eating better, patient states that taste has improved. Rechecking labs in AM. Follow up: montior labs.
[2016-07-23 05:19] LABS: CALCIUM 8.8 mg/dL (8.5-10.5); CREATININE 1.1 mg/dL (0.5-1.1)
--- NOTE | 2016-07-23 05:24 | NUR ---
Significant Event: a/o X3. Afebrile. Denies pain. VSS on RA. did trendox study tonight. had 3 bloody voids. H&H neg. no clots. MD aware. To hold first dose of Xarelto this morning. Up standby assist. Follow up: Possible d/c today.
--- NOTE | 2016-07-23 05:31 | NUR ---
Significant Event: A/O x3. afebrile. denies pain. vss on RA. Family assist. SBP 120-130s. LS clear/dim. GFR 49 this am. NS @ 100/hr. cooperative with cares. Follow up: possible d/c today
[2016-07-23] MEDS ORDERED: NORVASC10 MG PO (11:32)
[2016-07-23] MEDS ORDERED: COREG12.5 MG PO (11:32)
[2016-07-23] MEDS ORDERED: FEOSOL325 MG PO (11:34)
--- NOTE | 2016-07-23 14:23 | NUR ---
PT DISMISSED TO HOME WITH TO DRIVE. AT TIME OF DC PT IS A/ FAIRLY ORIENTED, STILL SLOW TO RESPOND. STEADY ON FEET WHEN UP WITH WALKER AND STAND BY ASSIST OF ONE. PICC LINE TO UPPER INNER RT ARM DC'D PER SOLE Thapa RN PCU. LUNGS ARE CLEAR ABDOMEN IS SOFT AND NONTENDER WITH PRESENT BOWEL SOUNDS, PULSES ARE STRONG SHE HAS NO EDEMA. DC INSTRUCTIONS, PRESCRIPTIONS, MEDICATIONS, MEDICATION INSTRUCTIONS, FOLLOW UP CARE AND APPOINTMENT ALL WENT OVER WITH PT AND , BOTH VERBALIZE UNDERSTABDING. W/C TO FRONT WE[employer] DO[employer] FOR DC TO HOME
== END 2016-07-23 12:00 | disposition disaster alternative care site (69) | DRG 853 ==
LOC: GPCU 18:12
PROVIDERS: Anesthesiology; Family Medicine; Internal Medicine; Thoracic Surgery (Cardiothoracic Vascular Surgery); ADMIT Family Medicine
DX: A41.9 Sepsis, unspecified organism (principal); J18.9 Pneumonia, unspecified organism; J96.01 Acute respiratory failure with hypoxia; N17.0 Acute kidney failure with tubular necrosis; E43 Unspecified severe protein-calorie malnutrition; G93.40 Encephalopathy, unspecified; J91.8 Pleural effusion in other conditions classified elsewhere; E11.42 Type 2 diabetes mellitus with diabetic polyneuropathy; D62 Acute posthemorrhagic anemia; M79.7 Fibromyalgia; Z79.82 Long term (current) use of aspirin; E87.6 Hypokalemia; D50.9 Iron deficiency anemia, unspecified; R33.9 Retention of urine, unspecified; I10 Essential (primary) hypertension; T36.95XA Adverse effect of unspecified systemic antibiotic, initial encounter
CPT/HCPCS: G0237; G0424; J0690; J1630; J1644; J1956; J2250; J2405; J2543; J3010; J3370; J3480; J7030; J7040; J7050; J7120; P9016; P9045